=== PATIENT | male | born 1940 | race Caucasian/White ===

== ENCOUNTER 2017-03-07 13:20 | Day surgery (SDC) | payer MEDICARE ==
[2017-03-07] VITALS (9 sets, daily range): BP systolic 115–146; BP diastolic 48–74; PULSE 66–78; RESP 13–22; O2SAT 95–100
[~2017-03-07] VITALS: Ht 193 cm; Wt 75.9 kg
[~2017-03-07 13:20] MED LIST: CeFAZolin Inj 2 GM in IV Premix 1 EACH IV ONE; LEFL20TA18 PO; Lactated Ringer's 1,000 ML IV SCH; NAPR220C11 PO; PRE20 PO
[2017-03-07] MEDS ORDERED: fentaNYL-PF 50 mCg/mL 2 mL Inj ONE (13:21)
[2017-03-07] MEDS ORDERED: Propofol 10,000 mCg/mL 20 mL Inj ONE (13:21)
[2017-03-07] MEDS ORDERED: Ondansetron 2 mg/mL 2 mL Inj ONE (13:21)
[2017-03-07] MEDS ORDERED: CeFAZolin Inj 2 gm / 50mL D5W IV ONE (13:37)
--- NOTE | 2017-03-07 15:45 | PCM.HPANE ---
Patient Data Surgeon Admitting Provider: Attending Provider:Aiyana Scherer MD Primary Care Physician:Wes Romero Other Provider:Yifan Foster Anesthesia Reason for Visit Hematuria Ht/WT & BMI Height (Feet): 6 Height (Inches): 4 Weight (Kilograms): 75.9 Body Mass Index 20.00 Allergies Coded Allergies: Sulfa (Sulfonamide Antibiotics) (Verified Allergy, Unknown, rash, 03/02/17) Past Anesthesia History Anesthesia History: Denies:: Abnormal Airway, Anesthesia Reactions, Difficult Intubation, Fam Anesthesia Reaction Diabetes History Hx Diabetes?: No MRSA MRSA: No Medications Hypertension Medication: No Home Meds Incl Beta Brian: No Reported Medications Prednisone (PredniSONE)20 Mg [id number] Mg PO DAILY Ref 0 03/02/17 Leflunomide 20 Mg [id number] Mg PO DAILY 03/02/17 Naproxen Sodium (Aleve)220 Mg [id number] Mg PO BID PRN For Pain 03/02/17 History History of ENT Problems?: Yes HEENT History: Positive for:: Cataracts (bilateral) Hearing Problem Denies:: Abnormal Airway Difficult Intubation Dysphagia Glaucoma Sinus Problem TMJ Denture Type: None Partial- Lower Teeth Condition: Tooth Decay Missing Teeth Other HEENT Pertinent History: pt needs 5 teeth pulled- awaiting treatment Other History/Comment Dental abscess x 5, molars Hx of Heart Problems?: No Cardiovascular History: Denies:: AICD Abdominal Aortic Aneurism Cardiac Surgery Coronary Artery Disease Edema Heart Murmur Hypertension Irregular Heartbeat Pacemaker Hx of Respiratory Problem?: No Respiratory History: Denies:: Asthma COPD Oxygen Administration Pneumonia Tuberculosis Use of C-PAP Machine Hx Neurologic Problems?: Yes Neurological History: Positive for:: CVA (past hx of, no residual) Denies:: Headaches Multiple Sclerosis Parkinson's Disease Seizures Other Neurological Pertinent: 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 Pressure Ulcers Hx Musculoskeletal Problems?: Yes Musculoskeletal History: Positive for:: Back Injury (spinal stenosis, bulging disc, chronic pain) Osteoarthritis Denies:: Fibromyalgia Joint Replacement Musculoskeletal Trauma Myasthenia Gravis Hx of Psycho/Social Problems?: No Psycho Social History: Denies:: Anxiety Hx Depression Hx Surgeries?: Yes (cataracts) Hx Any Other Health Problems?: Yes Other History: Positive for:: Cancer (prostate) Denies:: Thyroid Disease History Blood Transfusions: Denies:: Blood Transfuse Reaction Blood Transfusions Hx Diabetes: No Hx Alcohol Use: NoHx Substance Use: No Stop/Bang Treated for Sleep Apnea?: No Do You Have a CPAP Machine?: No S-Snoring: Do You Snore Loudly: No T-Tired: feel tired, fatigued: No O-Obsered: Observed not breath: No P-Blood Pressure: treated: No B- Body Mass Index > 35 kg/m2: No A- Age over 50: Yes N- Neck Large Circumference: No G- Gender Male: Yes POONAM Total Score: 2 Risk Assessment Category Category 1A: Patient has history of documented sleep apnea, and HAS NOT received any narcotic, sedative or anesthesia administration during this stay. Category 1B: Patient has history of documented sleep apnea, and HAS received any narcotic , sedative or anesthesia administration during this stay Category 2: Patient has SUSPECTED Obstructive Sleep Apnea, and HAS received any narcotic , sedative or anesthesia administration during this stay. Category 3: Patient has SUSPECTED Obstructive Sleep Apnea and HAS NOT received narcotic, sedative or anesthesia administration during this stay. Category 4: Outpatient in Procedural Areas with known sleep apnea or who screen positive for High Risk via the STOP/BANG questionnaire. Exam Exam Vital Signs Vital Signs Date Time Temp Pulse Resp B/P Pulse Ox O2 Delivery O2 Flow Rate FiO2 03/07/17 14:54 36.4 78 16 115/48 99 Room Air General Appearance: Alert, Oriented X3, Cooperative HEENT/AIRWAY: MP 2 Lungs: Clear to Auscultation Heart: Exam Unremarkable Plan Impression Patient chart reviewed, patient interviewed and anesthestic plan with risks, benefits, and alternatives discussed, and informed consent obtained. ASA Physical Status: ASA2 Plus Emergency Anesthetic Plan: GA Bene/Risks/Altern/Consents: Yes HP Complete Prior to Induction: Yes Nima Rajan MD Mar 07, 2017 15:45
[2017-03-07] MEDS ORDERED: Lactated Ringer's 1,000 ML IV SCH (16:14)
[2017-03-07] MEDS ORDERED: Lactated Ringer's 500 ML IV PRN (16:14)
[2017-03-07] MEDS ORDERED: HYDROmorphone 1 mg/mL Inj IVPUSH PRN (16:15)
[2017-03-07] MEDS ORDERED: MetoCLOpramide 5 mg/mL 2 mL Inj IVPUSH PRN (16:15)
[2017-03-07] MEDS ORDERED: Dexamethasone 4 mg/mL Inj IVPUSH PRN (16:15)
[2017-03-07] MEDS ORDERED: Ondansetron 2 mg/mL 2 mL Inj IVPUSH PRN (16:15)
[2017-03-07] MEDS ORDERED: fentaNYL-PF 50 mCg/mL 2 mL Inj IVPUSH PRN (16:15)
[2017-03-07] MEDS ORDERED: Phenylephrine 10,000 mCg/mL Inj IVPUSH PRN (16:15)
[2017-03-07] MEDS ORDERED: EPHEDrine Sulfate 50 mg/mL Inj IVPUSH PRN (16:15)
[2017-03-07] MEDS ORDERED: HYDROcodone-APAP 5-325 mg Tablet PO PRN (17:05)
--- NOTE | 2017-03-07 17:45 | OP ---
[address] [address] OPERATIVE REPORT PATIENT: FARNAZ ADAM : 1940 MR#: [id number] ADMIT: 03/07/2017 JOB ID: [id number] DATE OF SURGERY: 03/07/2017 PREOPERATIVE DIAGNOSIS(ES): 1. Gross hematuria. 2. Right upper tract filling defect on CT scan. POSTOPERATIVE DIAGNOSIS(ES): 1. Gross hematuria. 2. Right upper tract filling defect on CT scan. PROCEDURE PERFORMED: 1. Cystoscopy and right retrograde pyelogram. 2. Right ureteroscopy and laser incision of tumor and biopsy. 3. Right ureteral stent placement. SURGEON: Aiyana Scherer MD STRAIGHTENING PRESS OPERATOR HELPER: None. FINDINGS: 1. Gross hematuria per bladder. 2. Bloody efflux from the right ureteral orifice. 3. Papillary tumors along the calices of the upper pole, as well as nodular appearing tumors within the upper pole collecting system. ANESTHESIA: General. ESTIMATED BLOOD LOSS: Less than 5 mL. DRAINS: A 6 x 28 right double-J ureteral stent. SPECIMENS: Right upper tract collecting system tumors. COMPLICATIONS: None. CONDITION: Stable. INDICATIONS FOR PROCEDURE: The patient is a 76-year-old gentleman referred by Dr. Annamarie Jackson for the aforementioned procedures. He had presented with gross hematuria. Cystoscopy in clinic with Dr. Jackson demonstrated bloody efflux from the right ureteral orifice. A CT scan is concerning for right upper tract malignancy. DESCRIPTION OF PROCEDURE: After informed consent was obtained, the patient was taken to the operating room. A time-out was performed identifying correct patient, surgical site, and procedure. General anesthesia was smoothly induced. He was given intravenous antibiotics just prior to the start of the procedure. He was placed in the lithotomy position and all pressure points were identified and appropriately padded. His genitals were then prepped and draped in the usual sterile fashion. A 22-Citizen Of [place] rigid cystoscope was applied at the patient's urethra and advanced into the bladder. There did appear to be a mild bulbar urethral stricture. The stricture did not need to be dilated. Upon entry into the bladder, the bladder was drained. The urine from the bladder was wine colored. The bladder was irrigated and both ureteral orifices were seen in fairly orthotopic position, though there was trabeculation, and the right ureteral orifice was mildly askew because of this. The right ureteral orifice was seen effluxing bloody output. A 5-Citizen Of [place] open-ended Pollack catheter was used to cannulate it and a retrograde pyelogram was performed. Findings were consistent with the CT scan of filling defects within the upper pole calices. A Sensor tip wire was loaded through the Pollack and advanced to the renal pelvis as seen under fluoroscopy. The polyp was then removed. Another Sensor tip wire was then guided into the renal pelvis under fluoroscopy. A 12/14 access sheath, 28 cm long, was loaded over one of the wires and advanced into the distal to mid ureter. Flexible ureteroscopy then commenced. Retrograde pyelogram was performed. Every calyx was inspected. There appeared to be clot in the upper pole, as well as papillary tumors which could be seen carpeting the calices. There were also nodular papillary tumors within the lumen of the calyx and the upper pole. Several attempts were made to obtain tissue specimen with both a Zero tip basket as well as ureteroscopic biopsy forceps, though these efforts were in vain. A 273 laser fiber wire was used to incise one of the more nodular papillary appearing tumors within the lumen of the yocasta and a Zero tip basket was used through multiple passes to obtain tissue specimen for frozen section. Preliminary analysis of the frozen section was suspicious for a "neoplasm." The ureteroscope was then brought down to the level of the access sheath and both were brought down in tandem. The remaining Sensor tip wire was then backloaded in the cystoscope and a 6 x 28 double-J ureteral stent was loaded over it and advanced into the renal pelvis as seen under fluoroscopy. The wire was then removed leaving a nice coil in the patient's bladder as seen under direct vision. The bladder was drained. The instruments were removed from the patient's body. The patient appeared to tolerate the procedure well. There were no apparent complications. He was taken to the PACU in good and stable condition. MARCK
--- NOTE | 2017-03-07 18:28 | PCM.ANEP1 ---
Post Anesthesia PACU Phase 1 Assessment Vital Signs Vital Signs Date Time Temp Pulse Resp B/P Pulse Ox O2 Delivery O2 Flow Rate FiO2 03/07/17 18:10 36.8 70 15 126/74 97 Room Air 03/07/17 17:35 36 69 22 139/66 99 Room Air 03/07/17 17:30 36 68 20 140/60 99 Room Air 03/07/17 17:25 72 15 140/65 99 Room Air 03/07/17 17:20 67 14 146/54 100 Room Air 03/07/17 17:15 66 22 130/61 95 Room Air 03/07/17 17:10 69 13 142/59 95 Room Air 03/07/17 17:05 36.1 68 14 139/54 96 Room Air 03/07/17 14:54 36.4 78 16 115/48 99 Room Air Anesthetic Administered: GA Level of Alertness: Awake, talking KAPLAN's with Equal Strength: Yes Pain: No Nausea or Vomiting: No CV Function & Hydration Stable: Yes Airway Device: Oxygen Delivery: Room Air Lungs: Clear to Auscultation Dermatome Level: Full Sensation PACU Phase 2 Assessment Complications: No Follow up Care: No Patient Instructions Provided: N/A Nima Rajan MD Mar 07, 2017 18:28
--- NOTE | 2017-03-08 09:28 | DRSVH ---
PROCEDURE: X-RAY RETROGRADE UROGRAPHY INDICATIONS: RIGHT CYSTO STENT PLACMENT TECHNIQUE: 2 intra-operative images acquired by the Urology service. COMPARISON: [facility], CT, CT ABD PELVIS W&WO CON IVP, 01/10/2017, 17:00. FINDINGS: Exam is limited to to submitted images. Within these limits, the right renal collecting s ystem has been opacified and there are 2 intraluminal filling defects visualized within the proximal left ureter largest measuring roughly 1 cm and the smaller 5 mm. No extravasation. Of note, promine nt costochondral calcification is identified. IMPRESSION: 2 internal filling defects within the proximal right ureter suspicious for retained stone s. Recommend correlation with real-time exam. Dictated by: Yvan GEORGES Interpreted: Kina Watkins MD on 03/08/2017 at 8:35 Approved by: Kina Watkins M.D. on 03/08/2017 at 9:27
== END 2017-03-07 23:59 | disposition home or self-care (01) ==
LOC: SAS 13:20
PROVIDERS: ATTEND Urology
DX: C64.1 Malignant neoplasm of right kidney, except renal pelvis (principal); R31.0 Gross hematuria; R93.421 Abnormal radiologic findings on diagnostic imaging of right kidney; N40.1 Benign prostatic hyperplasia with lower urinary tract symptoms; M06.9 Rheumatoid arthritis, unspecified; N13.8 Other obstructive and reflux uropathy; M19.90 Unspecified osteoarthritis, unspecified site; F17.210 Nicotine dependence, cigarettes, uncomplicated; Z85.46 Personal history of malignant neoplasm of prostate; Z86.73 Personal history of transient ischemic attack (TIA), and cerebral infarction without residual deficits
CPT/HCPCS: 52332; 52354; 74420; 88305; 88331; C2617; J0690; J2250; J2405; J2704; J3010; J7120; Q9967

== ENCOUNTER 2017-04-13 16:36 | Observation (INO) | payer MEDICARE ==
[~2017-04-13] VITALS: Ht 193 cm; Wt 71.8 kg
[2017-04-13] VITALS (8 sets, daily range): BP systolic 96–140; BP diastolic 38–64; PULSE 45–84; RESP 14–21; O2SAT 93–100
[~2017-04-13 16:36] MED LIST changes: -CeFAZolin Inj 2 GM in IV Premix 1 EACH IV ONE; -Lactated Ringer's 1,000 ML IV SCH
[2017-04-13 17:29] LABS: BASOPHILS % (AUTO) 1.4 % (0-3); EOSINOPHILS % (AUTO) 4.3 % (0-5); MONOCYTES % (AUTO) 10.8 % (4-12); Mean Corpuscular Hemoglobin 23.3 pg (27.0-35.0); Mean Corpuscular Volume 78.7 fL (81-100); NEUTROPHILS % (AUTO) 49.6 % (40-74); Platelet Count 249 bil/L (150-400)
[2017-04-13 17:45] LABS: Magnesium 1.6 mg/dL (1.6-2.6)
--- NOTE | 2017-04-13 18:16 | ED.REPORT ---
HPI-General Illness Date of Service Apr 13, 2017 ED Provider: Mariola Angel MD Pt is a 76 year old male with a hx of kidney cancer presenting to the ED complaining of general malaise. Associated symptoms include generalized weakness gradually worsening over the last 3-4 months, SOB in the same timeframe , unsteady gait, fatigue, dizziness, feeling thirsty, hematuria for months, and shaking. Denies any pain, palpitations, headache, chest pain or abdominal pain. The pt reports that his urologist advised him to come in for a blood transfusion. He denies any previous history of blood transfusion. Pt reports that he had 5 teeth removed 1 week ago, and had a recent fall out of a chair. Nursing Notes Stated Complaint: SAID PT NEEDS BLOOD TRANFUSION, CONFUSED Chief Complaint: General Complaint Nursing Notes Reviewed: Yes Allergies: Coded Allergies: Sulfa (Sulfonamide Antibiotics) (Verified Allergy, Unknown, rash, 03/02/17) Scheduled ([Super Beta Prostate]) 1 TABLET PO DAILY Hydrocodone-Acetaminophen 5-325 mg (Hydrocodone-Acetaminophen 5-325 mg) 1 Each Tablet 1 TABLET PO QAM Leflunomide (Leflunomide) 20 Mg Tablet 20 MG PO QAM Scheduled PRN diphenhydrAMINE HCl (Benadryl) 25 Mg Capsule 50 MG PO HS PRN PRN Insomnia General Time Seen by MD: 18:15 Chief Complaint Not feeling well Hx Obtained From: Patient Arrived By: Walk-in Sudden in Onset?: No Onset Occurred: More than a week ago... (4 months) Symptom Duration: Since onset Severity: Current: No pain currently Severity: Maximum: No pain Recent Healthcare: No recent hospitalization, Recent doctor visit Similar Sx Previous: No Past Medical History Past Medical History Kidney cancer Denies: Bleeding disorder, COPD, Congestive heart failure, Coronary artery disease, Diabetes mellitus Past Surgical History Cystoscopy Smoking History Unknown if Ever Smoker Ambulatory Status Independent Review of Systems Feeling thirsty Full Review of Systems Constitutional: Reports: Fatigue, Malaise, Weakness - generalized Respiratory: Reports: Shortness of breath Cardiovascular: Denies: Chest pain, Palpitations GI: Denies: Abdominal pain Male: Reports Hematuria Neurologic: Reports: Dizziness, Problem walking, Shaking, Denies: Headache Complete sys rev & neg: except as marked. Physical Exam Vital Signs Vital Signs Date Time Temp Pulse Resp B/P Pulse Ox O2 Delivery O2 Flow Rate FiO2 04/13/17 18:52 70 17 123/46 100 Room Air 04/13/17 17:56 84 14 111/50 99 Room Air 04/13/17 16:39 36.7 45 16 96/55 93 Room Air Initial VS: Reviewed, Vital signs abnormal ENT: Mucous membranes moist Neck: Supple, Non-tender, Full range of motion Respiratory: Breath sounds normal, Clear to auscultation, No respiratory distress Cardiovascular: Regular rate & rhythm, Heart sounds normal, Intact distal pulses Abdomen / GI: Soft, Non-tender, No guarding, No rebound, No distention Extremities: Vascular intact, Neuro intact, No swelling, No tenderness Skin: Warm, Dry, No cyanosis Neurologic: Alert, Oriented, Nonfocal General/Constitutional: Awake, Alert Appearance / Presentation: Positive: Pale Head / Eyes: Atraumatic, Normocephalic, PERRL Pale conjunctiva Interpretation & Diagnostics Lab Results Interpretation Result Diagram: 04/13/17 1720 04/13/17 1720 Test 04/13/17 17:20 04/13/17 19:15 White Blood Count 6.2th/mm3 (3.8-10.1) Red Blood Count 3.01mil/mm3 (4.40-5.80) Hemoglobin 7.0g/dL (13.8-17.2) Hematocrit 23.7% (41.0-50.0) Mean Corpuscular Volume 78.7fL (81-100) Mean Corpuscular Hemoglobin 23.3pg (27.0-35.0) Mean Corpuscular Hemoglobin Concent 29.5% (32.0-37.0) Red Cell Distribution Width 17.0% (12.3-15.4) Platelet Count 249bil/L (150-400) Neutrophils (%) (Auto) 49.6% (40-74) Lymphocytes (%) (Auto) 33.7% (14-46) Monocytes (%) (Auto) 10.8% (4-12) Eosinophils (%) (Auto) 4.3% (0-5) Basophils (%) (Auto) 1.4% (0-3) Hematology Comments Sodium Level 138mEq/L (134-144) Potassium Level 4.3mEq/L (3.5-5.2) Chloride Level 100mEq/L (97-108) Carbon Dioxide Level 17mmol/L (18-29) Blood Urea Nitrogen 32mg/dL (8-27) Creatinine 1.90mg/dL (0.76-1.27) Estimat Glomerular Filtration Rate 37mL/min (>59) Glucose Level 130mg/dL (60-99) Calcium Level 9.1mg/dL (8.5-10.1) Magnesium Level 1.6mg/dL (1.6-2.6) Iron Level 16ug/dL (35-150) Total Iron Binding Capacity 492ug/dL (250-450) Percent Iron Saturation 3%sat (15-50) Unsaturated Iron Binding 476.1ug/dL Total Bilirubin 0.3mg/dL (0.0-1.2) Aspartate Amino Transf (AST/SGOT) 25U/L (0-50) Alanine Aminotransferase (ALT/SGPT) 9U/L (0-44) Alkaline Phosphatase 129U/L (25-160) Total Protein 7.4g/dL (6.4-8.4) Albumin 4.0g/dL (3.4-5.0) Lipase 69U/L (13-60) Urine Color Bloody (YELLOW) Urine Appearance Turbid (CLEAR,HAZY) Urine pH 6.0 (5.0-8.0) Urine Specific [place] 1.025 (1.003-1.035) Urine Protein >=300mg/dL (NEG,TRACE) Urine Glucose (UA) Negativemg/dL (NEGATIVE) Urine Ketones Negativemg/dL (NEGATIVE) Urine Occult Blood Large (NEGATIVE) Urine Nitrite Negative (NEGATIVE) Urine Bilirubin Small (NEGATIVE) Urine Ictotest Negative (Negative) Urine Urobilinogen Normalmg/dL (NORMAL) Urine Leukocyte Esterase Trace (NEGATIVE) Urine RBC Packed/hpf (0-2) Urine WBC 0-5/hpf (0-5) Urine Epithelial Cells None/hpf (NONE-MOD) Urine Crystals None seen (NONE SEEN) Urine Bacteria None/hpf (NONE-FEW) Urine Hyaline Casts None/lpf (NONE) Urine Granular Casts None seen (NONE SEEN) Urine Waxy Casts None seen (NONE SEEN) Urine Red Blood Cell Casts None seen (NONE SEEN) Urine White Blood Cell Casts None seen (NONE SEEN) Urine Mucus None seen (None Seen) Urine Trichomonas None seen (NONE SEEN) Urine Yeast None (NONE SEEN) Urinalysis Comment None Urine Culture Reflexed Not indicated Re-Eval/Medical Decision Med Decision/Clinical Course The patient has chronic bleeding and is now symptomatic with his anemia. He'll be admitted for blood transfusion. Time of Eval: 18:00 Patient Status: Condition improved Re-Evaluation/Progress Note: Discussed plan for admission. Pt understands and agrees with plan. Consultation : Referral / Consult Name: Priyanka Gamble DO Consulted With: Hospitalist Call Returned at: 19:37 Occupational Health And Safety Adviser: Will see patient, Agrees with plan, Accepts admit Counseled Regarding: Diagnosis, Lab results, Need for admission Discharge & Departure Primary Impression: Hematuria Additional Impressions: Anemia Anemia type: unspecified type Qualified Code: D64.9 - Anemia, unspecified Cancer of kidney Laterality: unspecified laterality Qualified Code: C64.9 - Malignant neoplasm of unspecified kidney, except renal pelvis Disposition: ADMITTED TO HOSPITAL Discharge Condition All VS Reviewed: Yes Condition: Improved Referrals: Wes Romero (PCP) Earl Attestation Portions of this note were transcribed by Michelle Robb. I, Dr. Angel personally performed the history, physical exam and medical decision-making; I reviewed and confirmed the accuracy of the information in the transcribed note. Signed by : Earl Tillman, 04/13/2017. copies to: Wes Romero Jena M MD Apr 13, 2017 18:16 MICHELLE ROBB Apr 13, 2017 18:25
[2017-04-13] MEDS ORDERED: SUPER BETA PROSTATE PO (19:00)
[2017-04-13] MEDS ORDERED: HYDR-4003 PO (19:00)
[2017-04-13] MEDS ORDERED: DIPH25CA6 PO (19:06)
[2017-04-13 19:36] LABS: APPEARANCE,URINE TURBID (CLEAR,HAZY); COLOR,URINE BLOODY (YELLOW); OCCULT BLOOD,URINE LARGE (NEGATIVE); UROBILINOGEN,URINE NORMAL (NORMAL)
[2017-04-13 19:37] LABS: ICTOTEST,URINE NEGATIVE (Negative)
[2017-04-13] MEDS ORDERED: Famotidine Inj 20 MG in IV Premix 1 EACH IV SCH (20:30)
[2017-04-13] MEDS ORDERED: Alum-Mag Hydrox-Simeth 30 mL Suspension PO PRN (20:30)
[2017-04-13] MEDS ORDERED: Ondansetron 2 mg/mL 2 mL Inj IVPUSH PRN (20:30)
[2017-04-13] MEDS ORDERED: Polyethylene Glycol (PEG) 17 Gm Powder PO PRN (20:30)
[2017-04-13] MEDS ORDERED: Glucose 40% Oral Gel 15 Gm Tube PO PRN (20:35)
--- NOTE | 2017-04-13 21:19 | PCM.HPMED ---
Subjective Date of Service Apr 13, 2017 Primary Provider: Admitting Physician: Priyanka Gamble DO Primary Care Physician: Wes Romero Attending Physician: Priyanka Gamble DO Chief Complaint: Fatigue, Weakness History of Present Illness: Patient is a 76 y/o male with past medical history of Prostate Cancer and Kidney Cancer who presents after 3-4 months worth of fatigue. Patient was diagnosed with kidney cancer [address] Aiyana Scherer has been following with plans for surgical intervention. Patient has had six months of daily painless hematuria, and has been having increased fatigue, weakness, and exertional SOB over the past 4 months. Surgical intervention has been delayed because of consistently low blood pressures and increasing anemia. Dr. Scherer instructed patient to come in for a blood transfusion yesterday, but patient could not get the energy to come in. Patient also reports diarrhea over the past 3 weeks that has been nonbloody and about 2-3x/day. Patient denies GODDARD, CP, ABD pain, N/V, syncope, or muscle pain. 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 He remembers because of his "rare blood type", and they had to find another soldier on a different destroyer who had the same blood type. In the ED, patient was cross and typed and started receiving 1U of PRBCs. Review of Systems: ROS reviewed and otherwise negative unless noted above. Allergies Coded Allergies: No Known Allergies (Verified Allergy, Unknown, 04/14/17) Home Medications diphenhydramine 50mg PO HS for insomnia Hydrocodone-acetaminophen 5-325mg PO daily Leflunomide 20mg PO daily Super Beta Prostate 1 tablet daily. PMH Prostate Cancer Kidney Cancer - diagnosed 4 weeks ago and followed by Dr. Scherer. Surgical History Appendectomy Family History Father - CAD, DM, HTN Mother Colon Cancer Social History Hx Alcohol Use: No Hx Substance Use: No Hx Tobacco Use: Yes (1 ppd for 51 years) Smoking Status: Current Every Day Smoker Living Arrangement: with Family Exam Vital Signs Vital Sign - Last Date Time Temp Pulse Resp B/P Pulse Ox O2 Delivery O2 Flow Rate FiO2 04/13/17 19:48 78 21 127/51 100 Room Air 04/13/17 19:43 36.6 Exam Constitutional: awake, alert and oriented x3, no acute distress Head: normocephalic and atraumatic Eyes: Pupils equal round and reactive to light, EOMI, no scleral icterus, pale conjunctiva Heart: Regular rate and rhythm. no murmurs, no rubs or gallops. No peripheral edema Lungs: clear to auscultation, no wheeze, rales, or rhonchi ABD: soft, nontender, bowel sounds present throughout Musculoskeletal: moves all four extremities appropriately Skin: pale, cool no rash Neuro: CN II-XII intact. no focal deficits. Psych: appropriate mood and affect. Lab and Diagnostics Labs Item Value Date Time Red Blood Count 3.01 mil/mm3 L 04/13/17 172 Mean Corpuscular Volume 78.7 fL L 04/13/17 172 Mean Corpuscular Hemoglobin 23.3 pg L 04/13/17 172 Mean Corpuscular Hemoglobin Concent 29.5 % L 04/13/17 1720 Red Cell Distribution Width 17.0 % H 04/13/17 1720 Platelet Count 249 tamika/L 04/13/17 1720 Neutrophils (%) (Auto) 49.6 % 04/13/17 1720 Lymphocytes (%) (Auto) 33.7 % 04/13/17 1720 Monocytes (%) (Auto) 10.8 % 04/13/17 1720 Eosinophils (%) (Auto) 4.3 % 04/13/17 1720 Basophils (%) (Auto) 1.4 % 04/13/17 172 Estimat Glomerular Filtration Rate 37 mL/min 04/13/17 1720 Calcium Level 9.1 mg/dL 04/13/17 1720 Magnesium Level 1.6 mg/dL 04/13/17 1720 Total Bilirubin 0.3 mg/dL 04/13/17 1720 Aspartate Amino Transf (AST/SGOT) 25 U/L 04/13/17 1720 Alanine Aminotransferase (ALT/SGPT) 9 U/L 04/13/17 1720 Alkaline Phosphatase 129 U/L 04/13/17 1720 Total Protein 7.4 g/dL 04/13/17 1720 Albumin 4.0 g/dL 04/13/17 1720 Lipase 69 U/L H 04/13/17 1720 Result Diagram: 04/13/17 1720 04/13/17 1720 Assessment & Plan Patient is a 76 y/o male with past medical history of Prostate Cancer and Kidney Cancer who presents after 3-4 months worth of fatigue. Patient was diagnosed with kidney cancer [address] Aiyana Scherer has been following with plans for surgical intervention. Patient has had six months of daily painless hematuria, and has been having increased fatigue, weakness, and exertional SOB over the past 4 months. Surgical intervention has been delayed because of consistently low blood pressures and increasing anemia. - Acute on Chronic Blood Loss Anemia, POA, Active, Stable - Hgb 7.0 on admission, transfusion started in ED for 2 Units of PRBCs, patient reports gross hematuria for 6 months and denies any bloody stools/bloody emesis - Check H/H at 2300 - Peripheral smear - AM CBC - Consult Urology, Dr. Scherer for plan for f/u and further plans for care - Transferrin level due to MCV < 80 - Acute Kidney Injury, POA, Active, Stable - Patient SCr 1.9 on admission with no previous baseline, likely due to prolonged anemia - Monitor and repeat CMP in AM -History of Kidney Cancer, Chronic, Stable - 03/07 cystoscopy showing Papillary tumors along the calices of the upper pole, as well as nodular appearing tumors within the upper pole collecting system - Old records reviewed - Consult Urology for their plan of care Patient is LIMITED INTERVENTIONS: INTUBATION ONLY Due to the need for transfusion, patient is admitted under the observation status and expected length of stay is estimated to be less than 2 midnights. Pain Evaluation: Adequate Pain Control GI Prophylaxis: H2 kellie VTE Prophylaxis Indicated: Contraindicated VTE Prophylaxis: Sub-Q Heparin (Unfractionated) Resuscitation Status: Limited Interventions Limited Interventions: Intubation w [facility] Vent Attending Statement The patient was seen and examined together with house staff on 04/13/2017 and I agree with the history, exam and plan as outlined in the note above. Timothy Guerrero DO Apr 13, 2017 20:37 Priyanka Gamble DO Apr 14, 2017 04:43
[2017-04-13] MEDS ORDERED: Dextrose 10% 250 ML IV PRN (21:40)
[2017-04-13 21:45] LABS: Unsaturated Iron Binding 476.1 ug/dL
[2017-04-13] MEDS: Insulin LISPRO 300 Unit/3 mL Inj SUBQ SCH (22:00)
[2017-04-13] MEDS ORDERED: 0.9% Sodium Chloride 250 ML IV SCH (23:00)
[2017-04-14 00:04] VITALS: BP 120/52; PULSE 71; RESP 16
[2017-04-14 01:18] VITALS: BP 115/53; PULSE 72; RESP 14; O2SAT 97
--- NOTE | 2017-04-14 01:59 | NUR ---
Admit Note Pt. arrived on the floor at 2113. Pt. alert and oriented x3. Pt's peripheral IV intact and patent with 1 unit of PRBCS infusing. Will continue to monitor.
[2017-04-14 02:09] VITALS: BP 104/42; PULSE 65; RESP 16
[2017-04-14 04:49] VITALS: BP 117/50; PULSE 66; RESP 18; O2SAT 96
--- NOTE | 2017-04-14 04:54 | NUR ---
Blood admin Pt. had another unit of PRBCs after the first unit from the ER finished. Vital signs stable. Pt. denies any adverse reaction. Pt. was very eager to go home after blood admin was done. Education given on the importance of waiting until the AM until lab results are back to see if H and H is stable. Pt. verbalized understanding and agrees to stay. Will continue to monitor.
[2017-04-14 05:13] LABS: BASOPHILS % (AUTO) 0.8 % (0-3); Mean Corpuscular Hemoglobin 25.4 pg (27.0-35.0); Mean Corpuscular Volume 80.9 fL (81-100); NEUTROPHILS % (AUTO) 45.1 % (40-74); Platelet Count 173 bil/L (150-400)
[2017-04-14] MEDS: Insulin LISPRO 300 Unit/3 mL Inj SUBQ SCH (08:00)
[2017-04-14] MEDS ORDERED: Famotidine Inj 20 MG in IV Premix 1 EACH IV SCH (08:30)
[2017-04-14] MEDS ORDERED: SUPER BETA PROSTATE PO SCH (08:30)
[2017-04-14] MEDS ORDERED: LEFLUNOMIDE 20MG TABLET PO SCH (08:30)
--- NOTE | 2017-04-14 10:16 | PCM.DIMED ---
Discharge Instructions Date of Service Apr 14, 2017 Dates of Hospitalization Apr 13, 2017 at 19:29 Discharge Diagnosis Discharge Diagnosis Acute on chronic iron deficiency anemia secondary to chronic hematuria Acute renal failure in the setting of chronic kidney disease stage III Diet Discharge Diet: Low fat, Low Sodium, Heart Healthy, Renal Diet Activity Discharge Activity: Other (avoid heavy physical work or exertion) Call your provider Call your provider for: Fever or Chills, Shortness of breath, Bleeding, Chest pain, Vomitting, Excessive diarrhea, Weakness (unilateral) Patient Instructions Patient Instructions Follow-up follow up with your primary care doctor and your urologist in 2-3 days after discharge Tapan Leroy MD Apr 14, 2017 10:16
--- NOTE | 2017-04-14 10:20 | PCM.DC.MED ---
Discharge Summary Date of Service Apr 14, 2017 Dates of Hospitalization Date of Hospital Admission Apr 13, 2017 at 19:29 Date of Discharge: Apr 14, 2017 Providers: Admitting Physician: Priyanka Gamble DO Primary Care Physician: Wes Romero Attending Physician: Tapan Leroy MD Diagnosis at Time of Discharge Diagnosis at Time of Discharge Acute on chronic iron deficiency anemia secondary to chronic hematuria Acute renal failure in the setting of chronic kidney disease stage III Hospital Course Patient is a 76 y/o male with past medical history of Prostate Cancer and Kidney Cancer who presents after 3-4 months worth of fatigue. Patient was diagnosed with kidney cancer [address] Aiyana Scherer has been following with plans for surgical intervention. Patient has had six months of daily painless hematuria, and has been having increased fatigue, weakness, and exertional SOB over the past 4 months. Patient was diagnosed with acute on chronic iron deficiency anemia secondary to chronic hematuria. She also had mild acute renal failure. Patient was admitted to the hospital for RBC transfusion. He received 2 units of blood. His hemoglobin improved. Patient asked me to discharge him home . He would like to follow-up with his urologist in outpatient settings. Patient was seen and examined on the day of discharge. After patient improved he was discharged home with recommendation to follow up with his PCP and Urologist for further management of his medical problems. Patient Condition @ Discharge: good Discharge Disposition: home Discharge Activity: resume regular activity, patient was advised to avoid heavy physical work or exertion Driving: Patient was strongly advised against driving when under influence of alcohol, pain meds or other medication that can cause sedation or decreased reaction. Patient was strongly advised that he must not drink, drive, operative heavy machinery or do anything that requires precise judgement or dexterity within 12 hours of taking the controlled medication that was prescribed to h . Patient was aware that opioids are very addictive medications and may cause psychological or physical addiction. Discharge Diet: regular renal diet, heart healthy, low fat, low salt, high fiber Information Provided to Patient: information about discharge medications Discharge Medications: I discussed with patient medication dosage, usage, goals of therapy, side effects, alternatives. During discharge patient was allert, oriented, able to make own informed decisions. We discussed possible severe side effects, adverse reactions, benefits, risks, alternatives of current and newly prescribed medications and diagnostic procedures. Patient verbalized understanding and agreed to current plan of care and discharge. TIME SPENT IN DISCHARGE ACTIVITY: activity greater then 30 minutes spent in discharge activity. 1. Discussed with patient re: discharge plan of care/treatment, and follow up care/services. 2. Patient agreed with discharge plan and further plan of care, all questions were answered/addressed, no further questions at the time of discharge. Exam Vital Signs (Last) Date Time Temp Pulse Resp B/P Pulse Ox O2 Delivery O2 Flow Rate FiO2 04/14/17 04:49 37.3 66 18 117/50 96 Room Air Test 04/13/17 17:20 04/13/17 19:15 04/14/17 04:42 04/14/17 09:24 Hematology Comments Magnesium Level 1.6mg/dL (1.6-2.6) Iron Level 16ug/dL (35-150) Total Iron Binding Capacity 492ug/dL (250-450) Percent Iron Saturation 3%sat (15-50) Unsaturated Iron Binding 476.1ug/dL Lipase 69U/L (13-60) Urine Color Bloody (YELLOW) Urine Appearance Turbid (CLEAR,HAZY) Urine pH 6.0 (5.0-8.0) Urine Specific [place] 1.025 (1.003-1.035) Urine Protein >=300mg/dL (NEG,TRACE) Urine Glucose (UA) Negativemg/dL (NEGATIVE) Urine Ketones Negativemg/dL (NEGATIVE) Urine Occult Blood Large (NEGATIVE) Urine Nitrite Negative (NEGATIVE) Urine Bilirubin Small (NEGATIVE) Urine Ictotest Negative (Negative) Urine Urobilinogen Normalmg/dL (NORMAL) Urine Leukocyte Esterase Trace (NEGATIVE) Urine RBC Packed/hpf (0-2) Urine WBC 0-5/hpf (0-5) Urine Epithelial Cells None/hpf (NONE-MOD) Urine Crystals None seen (NONE SEEN) Urine Bacteria None/hpf (NONE-FEW) Urine Hyaline Casts None/lpf (NONE) Urine Granular Casts None seen (NONE SEEN) Urine Waxy Casts None seen (NONE SEEN) Urine Red Blood Cell Casts None seen (NONE SEEN) Urine White Blood Cell Casts None seen (NONE SEEN) Urine Mucus None seen (None Seen) Urine Trichomonas None seen (NONE SEEN) Urine Yeast None (NONE SEEN) Urinalysis Comment None Urine Culture Reflexed Not indicated White Blood Count 4.8th/mm3 (3.8-10.1) Red Blood Count 3.03mil/mm3 (4.40-5.80) Mean Corpuscular Volume 80.9fL (81-100) Mean Corpuscular Hemoglobin 25.4pg (27.0-35.0) Mean Corpuscular Hemoglobin Concent 31.4% (32.0-37.0) Red Cell Distribution Width 16.5% (12.3-15.4) Platelet Count 173bil/L (150-400) Neutrophils (%) (Auto) 45.1% (40-74) Lymphocytes (%) (Auto) 37.1% (14-46) Monocytes (%) (Auto) 11.0% (4-12) Eosinophils (%) (Auto) 6.0% (0-5) Basophils (%) (Auto) 0.8% (0-3) Sodium Level 143mEq/L (134-144) Potassium Level 4.3mEq/L (3.5-5.2) Chloride Level 104mEq/L (97-108) Carbon Dioxide Level 25mmol/L (18-29) Blood Urea Nitrogen 36mg/dL (8-27) Creatinine 1.65mg/dL (0.76-1.27) Estimat Glomerular Filtration Rate 43mL/min (>59) Glucose Level 101mg/dL (60-99) Calcium Level 8.2mg/dL (8.5-10.1) Total Bilirubin 0.7mg/dL (0.0-1.2) Aspartate Amino Transf (AST/SGOT) 21U/L (0-50) Alanine Aminotransferase (ALT/SGPT) 7U/L (0-44) Alkaline Phosphatase 102U/L (25-160) Total Protein 5.3g/dL (6.4-8.4) Albumin 3.1g/dL (3.4-5.0) Hemoglobin 8.3g/dL (13.8-17.2) Hematocrit 26.4% (41.0-50.0) Discharge Medications Discharge Medications ([Super Beta Prostate]) 1 TABLET PO DAILY (Reported) Hydrocodone-Acetaminophen 5-325 mg (Hydrocodone-Acetaminophen 5-325 mg) 1 Each Tablet 1 TABLET PO QAM (Reported) Leflunomide (Leflunomide) 20 Mg Tablet 20 MG PO QAM (Reported) As needed diphenhydrAMINE HCl (Benadryl) 25 Mg Capsule 50 MG PO HS PRN PRN Insomnia ( Reported) Followup Plan Discharge Diet: Low fat, Low Sodium, Heart Healthy, Renal Diet Discharge Activity: Other (avoid heavy physical work or exertion) Patient Instructions Follow-up follow up with your primary care doctor and your urologist in 2-3 days after discharge Tapan Leroy MD Apr 14, 2017 10:20
--- NOTE | 2017-04-14 12:23 | NUR ---
Social Work: Attempted Initial Assessment/Discharge/Multidisciplinary Rounds D: EMR reviewed. Pt is a 76 y/o male admitted [place] - no readmit risk score assigned - for anemia per H&P. Pt's insurance is Medicare and PCP is Wes Koehler MD. Pt's NOK is Friend Kash Murphy ([phone]). SW attempted to meet with pt to conduct initial assessment but pt discharged prior to assessment. Pt discussed in multidisciplinary rounds and deemed medically stable for discharge today. No SW needs identified in multidisciplinary rounds, no MD orders received. A: Pt who is independent at baseline per MD/RN in multidisciplinary rounds P: Pt discharge home today via POV. SW attempted to conduct initial assessment but pt discharged prior to being seen by SW. ANKUR Burris
--- NOTE | 2017-04-14 12:24 | NUR ---
Discharge Note Patient discharged, friend here to transport home. IV catheter x 1 removed. Discharge instructions/medications discussed & understood. All items gathered, nothing left behind. Patient to set up appt w/ PCP on Sunday for f/u in 2-3 days. No prescriptions given. Patient transported out via wheelchair by [employer].
== END 2017-04-14 12:06 | disposition home or self-care (01) ==
LOC: SED 16:36 → UNDOADMOB 19:29 → OSC 19:29
PROVIDERS: ADMIT Internal Medicine; ATTEND Internal Medicine
DX: D62 Acute posthemorrhagic anemia (principal); D50.0 Iron deficiency anemia secondary to blood loss (chronic); R31.9 Hematuria, unspecified; C65.9 Malignant neoplasm of unspecified renal pelvis; N17.9 Acute kidney failure, unspecified; N18.3 Chronic kidney disease, stage 3 (moderate); Z85.46 Personal history of malignant neoplasm of prostate; F17.210 Nicotine dependence, cigarettes, uncomplicated
CPT/HCPCS: 36415; 36430; 80053; 81000; 83540; 83550; 83690; 83735; 84466; 85014; 85018; 85025; 86850; 86922; 99285; G0378; J1815; J7050; P9021